=== PATIENT | male | born 1955 | race Caucasian/White ===

== ENCOUNTER 2016-12-27 01:29 | Observation (INO) ==
[2016-12-27] MEDS ORDERED: ONDANSETRON 4 MG/2 ML VIAL IV STA (02:23)
[2016-12-27 02:36] LABS: Basophils % 0.7 % (0.0-0.8); Eosinophils # 0.1 10*3/uL (0.0-0.87); Eosinophils % 2.1 % (0.00-10.9); Hematocrit 42.2 VOL% (42.0-52.0); Hemoglobin 14.4 GM/DL (14.0-18.0); Lymphocytes # 1.4 10*3/uL (1.4-4.0); Lymphocytes % 23.3 % (21.2-54.2); Mean Corpuscular HGB Conc 34.1 GM/DL (32-36); Mean Corpuscular Hemoglobin 32 PG (27-34); Mean Platelet Volume 10.9 FL (9.6-12.0); Monocytes # 0.5 10*3/uL (0.11-0.8); Monocytes % 8.5 % (1.7-12.7); Neutrophils % 65.4 % (38.7-73.9); Platelet Count 85 T/CUMM (130-400); Red Blood Count 4.54 MC/CUMM (3.8-5.5); Red Cell Distribution Width 13.1 % (9.3-17.3); White Blood Count 6.1 T/CUMM (4-12)
[2016-12-27 02:47] LABS: INR 1.2; PT Patient Result 13.2 SECS; Partial Thromboplastin Time 28.7 SECS (0-40)
[2016-12-27 03:00] LABS: Alanine Aminotransferase 46 U/L (16-61); Albumin 3.5 G/DL (3.4-5.0); Alkaline Phosphatase 79 U/L (45-117); Aspartate Amino Transferase 36 U/L (0-37); Blood Urea Nitrogen 9 MG/DL (7-18); Calcium 8.7 MG/DL (8.5-10.1); Glucose 254 MG/DL (74-106); Osmolality,Calculated 286.4 MOS/KG (273-304); Potassium 3.7 MMOL/L (3.5-5.1); Sodium 140 MMOL/L (136-145); Total Protein 7.1 G/DL (6.4-8.3); Troponin I Only < 0.015 NG/ML (0.00-0.045)
--- NOTE | 2016-12-27 04:04 | EKG Report ---
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
[2016-12-27] MEDS ORDERED: ASPIRIN 325 MG TABLET PO STA (04:30)
[2016-12-27] MEDS ORDERED: ASPIRIN 325 MG TABLET ONE (04:38)
[2016-12-27] MEDS ORDERED: ONDANSETRON 4 MG/2 ML VIAL IV PRN (04:47)
[2016-12-27 05:01] LABS: Apearance,Urine CLEAR (Clear); Bilirubin,Urine Negative (Negative); Blood, Urine Negative (Negative); Glucose,Urine (UA) >=500 mg/dL (Negative); Ketones,Urine Negative (Negative); Mucus,Urine Occasional /LPF (Occasional); Nitrite,Urine Negative (Negative); Protein,Urine Negative; RBC,Urine 1 /HPF (0-4); Urine Color Yellow (Yellow); Urine Specific Gravity 1.011 (1.001-1.035); Urine Urobilinogen < 2.0 EU/DL (0.2-1.0); WBC,Urine <1 /HPF (0-6)
--- NOTE | 2016-12-27 05:03 | Emergency Department Note ---
I, Shirin Pena, am scribing for, and in the presence of, Ewelina Kelley DO 02:32. I, Ewelina Kelley DO, personally performed the services described in this documentation, ascribed by Shirin Pena in my presence, and it is both accurate and complete 503 . Arrival - Arrival Chief Complaint: Neuro Stated Complaint: numes lower r lip headache swelling on the left s ED Nursing Triage Note: Patient complains of numbeness to left side of lips and headache to left side of head that has been going on since Tuesday. Patient also complains of blurred vision and nausea. Awake, alert oriented x4 and ambulatory upon triage. Speech clear and audible, no slurring. History of HTN and high cholesterol. Mode of Arrival: Ambulatory Limitations: No Limitations Source: Patient, Significant other Time Seen by Provider: 12/27/16 02:07 - History of Present Illness HPI Narrative: Pt is a 60 y/o male that came to the ED with c/o pain behind the left ear with swelling that began 4 days ago. Pt states he also began having nausea tonight. 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 Pt states he came tonight with the head pain due to not being able to get comfortable no matter what position he tried. He reports he tried taking Tylenol for sxs with no relief. Pt reports he also had right sided numbness to his lip, right sided facial swelling, and slurred speech yesterday morning. Pt states he was also not able to control his mouth when the numbness came on. Pt denies difficulty breathing and swallowing but admits he has had problems with keeping liquids inside his mouth due to the numbness of his lip. states pt' s speech still sounds slurred and pt has been complaining of a MAYORGA every other day recently. Pt reports he did not come to the ED yesterday when the sxs came on because he "though it would be alright and just one of those things." Pt has a PMHx of HTN and hyperlipidemia. states pt's HTN medication was recently changed a little over a month ago. Pt admits he did stop taking his daily aspirin due to bleeding too much from it. Pt has a PSHx of appendectomy. Pt's PCP is Dr. Hale. No other complaints/pain in ED. Onset (ago): day(s) Consistency: constant Severity: moderate Severity scale (1-10): 4 Quality: sharp Allergies/Adverse Reactions: Allergies Allergy/AdvReac Type Severity Reaction Status Date / Time No Known Allergies Allergy Unverified 12/27/16 01:42 Home Medications: Home Medications Medication Instructions Recorded Confirmed Type Simvastatin [Zocor] 40 mg PO DAILY 12/27/16 12/27/16 History Valsartan/Hydrochlorothiazide 1 each PO DAILY 12/27/16 12/27/16 History [Valsartan-Hctz 160-12.5 mg Tab] Review of System - Review of System 12 point system: reviewed and no additional remarkable complaints except as stated - Review of System Constitutional: Present: other (slurred speech). Absent: chills, fever Head/Ears/Nose/Throat: Absent: earache Respiratory: Absent: cough Cardiovascular: Absent: chest pain Gastrointestinal: Present: nausea. Absent: abdominal pain, vomiting Musculoskeletal: Present: neck pain (neck pain behind his left ear with swelling ). Absent: arm pain, back pain Skin: Absent: rash Neurological: Present: headache, numbness (numbness to the right side of his mouth yesterday morning) Psychiatric: Absent: anxiety Medical,Surgical,& Family Hx - Medical History Cardio: History of: Hypertension Endocrine: History of: Dyslipidemia - Surgical History Surgical History: noncontributory Abdominal Surgeries: Surgical HX of: Appendectomy - Family History Family History: noncontributory - Social History Smoking Status: Never smoker Frequency of Alcohol Use: None Type of Drug Use: None Marital Status: Lives With:: Spouse Functional capacity: independent ambulation Exam Vital Signs: Vital Signs Temperature 98.4 F 12/27/16 01:54 Pulse Rate 65 12/27/16 01:54 Respiratory Rate 16 12/27/16 01:54 Blood Pressure 150/80 12/27/16 01:54 O2 Sat by Pulse Oximetry 95 12/27/16 01:46 - General General appearance: alert, in no apparent distress, other (left facial drooping with slightly slurred speech) - Head Head exam: Present: atraumatic, normocephalic - Eye Eye exam: Present: PERRL, EOMI - ENT ENT exam: Present: mucous membranes moist. Absent: mucous membranes dry - Neck Neck exam: Present: full ROM. Absent: tenderness - Chest Chest inspection: Present: symmetric chest wall rise. Absent: tenderness - Respiratory Respiratory exam: Present: normal lung sounds bilaterally. Absent: respiratory distress - Cardiovascular Cardiovascular exam: Present: regular rate, normal rhythm, normal heart sounds - Abdominal Exam Abdominal exam: Present: soft. Absent: tenderness - Extremities Exam Extremities exam: Present: full ROM. Absent: tenderness - Back Exam Back exam: Present: full ROM. Absent: tenderness - Neurological Exam Neurological exam: Present: alert, oriented X3, CN II-XII intact. Absent: motor sensory deficit - Psychiatric Psychiatric exam: Present: normal affect, normal mood - Skin Skin exam: Present: warm, dry Course Course Narrative: This is a 60-year-old male is coming into the ER today with a 24-36 hour history of a left-sided headache that is associated with some weakness in the left side of his face trouble swallowing and according to the his speech is been altered a little bit. He reports that his head was hurting before anything started and he simply thought it was just a tension headache. He states that he was taking some Tylenol but nothing was really helping the headache. 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 He was able to get the words out but he did not sound quite right. He has had no trouble swallowing or choking no fever no chills no chest pain no abdominal pain. He denies any trouble walking or any numbness or tingling in his arms or legs. The patient states that tonight when he tried to lay down to go to sleep his head continued to hurt especially on the left side and his made him come to the hospital to be evaluated. She reports that he takes blood pressure medication he had an echocardiogram done several years ago and was told his heart was enlarged. He is also on a cholesterol medicine. He is to take an aspirin a day but quit doing that because he was bruising a lot at work. The patient has no cardiac history that he is aware of such as an LA or blockage. He has never had a stroke or strokelike symptoms. She reports his blood pressure medication was changed several months ago. Physical exam the patient is awake alert his vital signs are stable blood pressure is normal at 150/80. HEENT exam TMs are normal pupils are equal and reactive. Evaluation of the posterior aspect of his head and neck he does have some tenderness to the base of his head and the left posterior cervical region is slightly tender. He has full range of motion. Heart is regular rate and rhythm his lungs are clear in the anterior and posterior wu. His abdomen is soft nontender with good bowel sounds no masses are palpable his extremities are intact with full range of motion. Neurologic exam for me he does have an obvious deficit when he tries to do facial grimacing he has weakness on the left side of his face. His tongue also deviates slightly when he sticks it out. His speech is a little thick at this time. He reported to me when he tried to swallow he was having trouble because the fluid is running out of his mouth. His core rescuer are virtually equal he did not have any gross deficits with his upper or lower extremities. I did do CT scan of the brain which did not show any acute process. Multiple lab tests were obtained which were also case EKG was also all right. At this time I do not feel the patient is a candidate for thrombolytic therapy for stroke treatment because his time of onset is been greater than 24 hours. I do feel the patient needs admitted for a workup for strokelike symptoms. He is in agreement with this treatment plan. I do give him a full aspirin. I have spoken to the hospitalist and we will be admitting the patient for further management of his strokelike symptoms. - Reevaluation(s) Reevaluation #1: he is doing better - symptoms are stable Time: 04:30 - Consultations Consultation #1: Dr. Mathews has been consulted and agrees with admission Time: 05:02 Results - Labs CBC & BMP: 12/27/16 02:25 12/27/16 02:25 Lab Results: I have reviewed the patients labs Labs: Laboratory Tests 12/27/16 02:25 Plt Count 85 L Laboratory Tests 12/27/16 12/27/16 02:25 02:25 INR 1.2 PT Patient/Control Mix 13.2 Circ Anticoag PTT 28.7 Glucose 254 H Globulin 3.6 H Albumin/Globulin Ratio 0.9 L - EKG EKG results: interpreted by ERMD, WNL, sinus rhythm - Diagnostic Findings Procedure: CT: report reviewed by me (Head: No acute intracranial process. ) Disposition Clinical Impression: Stroke-like symptoms Case discussed with: patient, patient's family Disposition: Still a Patient Condition: Stable Time of Disposition: 05:03
[2016-12-27 05:09] LABS: Hypochromasia Slight; Platelet Estimate Decreased
--- NOTE | 2016-12-27 05:36 | Hospitalist History & Physical ---
Assessment and Plan (1) RIND (reversible ischemic neurologic deficit) Status: Acute Assessment and plan: Patient symptoms and signs seem to waxing and waning. There is residual right facial droop according to the that his voice is better now but was very drawn in the morning. Patient was neurologic evaluation. We will also do need to do more brain imaging with MRI also do a CTA of the head and neck and also an ultrasound of the neck. This should evaluate for atheromas or structural vascular problems. Patient does have an echocardiogram. Consultation for neurology is going to be put on board. In the meantime patient is being admitted to [facility] medicine. Patient be admitted as an inpatient start him on antiplatelets with aspirin check lipid panel put him on a monitored bed. DVT prophylaxis will use Lovenox 40 mg subcu every day. Current Visit: Yes History of Present Illness Chief complaint: Possible stroke History of present illness: Mr. Carrasquillo is a 60 year old male that came to the ED with c/o pain behind the left ear with swelling that began 4 days ago. Pt states he also began having nausea tonight. 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 Pt states he came tonight with the head pain due to not being able to get comfortable no matter what position he tried. He reports he tried taking Tylenol for sxs with no relief. Pt reports he also had right sided numbness to his lip, right sided facial swelling, and slurred speech yesterday morning. Pt states he was also not able to control his mouth when the numbness came on. Pt denies difficulty breathing and swallowing but admits he has had problems with keeping liquids inside his mouth due to the numbness of his lip. states pt's speech still sounds slurred and pt has been complaining of a MAYORGA every other day recently. Pt reports he did not come to the ED yesterday when the sxs came on because he "though it would be alright and just one of those things." Pt has a PMHx of HTN and hyperlipidemia. states pt's HTN medication was recently changed a little over a month ago. Pt admits he did stop taking his daily aspirin due to bleeding too much from it. Pt has a PSHx of appendectomy. Pt's PCP is Dr. Hale. Home Medications Medication Instructions Recorded Confirmed Type Simvastatin [Zocor] 40 mg PO DAILY 05/01/17 05/01/17 History Valsartan/Hydrochlorothiazide 1 each PO DAILY 12/27/16 12/27/16 History [Valsartan-Hctz 160-12.5 mg Tab] Allergies Allergy/AdvReac Type Severity Reaction Status Date / Time No Known Allergies Allergy Unverified 12/27/16 01:42 Medical,Surgical,& Family Hx - Medical History Cardio: History of: Hypertension Endocrine: History of: Dyslipidemia - Surgical History Abdominal Surgeries: Surgical HX of: Appendectomy - Social History Smoking Status: Never smoker Frequency of Alcohol Use: None Type of Drug Use: None Review of systems: 12 point system assessment was done. Patient acknowledges having had problems giving out his words. He still complaining of numbness of the corner of the mouth on the right side. However noticed that his face tends to brought to the right. Does so does his tongue on tongue protrusion. He also is complaining of right occipital headache. Other than the chief complaint and history of presenting illness nothing else pans out on the 12 point system assessment Exam - Constitutional Vitals: Period Temp Pulse Resp BP Sys/Lowery Pulse Ox Last 24 Hr 61 16 149/90 General appearance: over weight - Head Head exam: Present: normal inspection, normocephalic, atraumatic - Eye Eye exam: Present: EOMI Pupils: Present: AMADEO - ENT ENT exam: Present: normal oropharynx, other (Tongue protrusion draws to the right) - Neck Neck exam: Present: other (Patient has a supple neck thick short tenderness in the posterior aspect behind the left ear) - Respiratory Respiratory exam: Present: clear to auscultation bilaterally, other (No wheezing no rales) - GI/Abdominal GI/Abdominal exam: Present: normal bowel sounds, soft, other (No hepatosplenomegaly no tenderness palpation) - Extremities Exam Extremities exam: Present: full ROM, other (No focal weakness in the limbs) - Back Exam Back exam: Present: normal inspection - Neurological Exam Neurological exam: Present: alert, oriented X3, CN II-XII intact - Psychiatric Psychiatric exam: Present: normal affect, normal mood - Skin Skin exam: Present: normal color, warm, dry Results - Labs CBC & BMP: 12/27/16 02:25 12/27/16 02:25 Lab Results: I have reviewed the past 24 hour labs - EKG EKG results: sinus rhythm, normal ST/T (EKG may have some old Q waves in inferior leads) Quality Measures - Stroke Onset of Symptoms Date: 12/24/16
--- NOTE | 2016-12-27 06:55 | XRay Report ---
History: Paresthesias left side of lips. Left-sided headache. Nausea. History of hypertension Date: 12/27/2016 Study: Chest x-ray AP portable Comparison exam: No previous chest x-ray available There is cardiomegaly. There is no mediastinal mass. The pulmonary vasculature is not engorged. There is coarsening of the bronchovascular markings. There are some scattered emphysematous changes. There is no definite acute infiltrate. There is no gross pleural effusion. There is mild thoracic spondylosis. Impression: Mild cardiomegaly. Chronic lung changes. No definite acute process PROCEDURE INTERPRETED AT [facility] DEPARTMENT OF RADIOLOGY Final Report Signed by: Dr. Jeniffer Ascencio
--- NOTE | 2016-12-27 06:58 | CT Report ---
History: Paresthesias left side of lips. Left-sided headache. Nausea. History of hypertension Date: 12/27/2016 Study: CT head without contrast Comparison exam: No previous head CT available Transaxial CT sections were obtained through the head without IV contrast. This CT exam was performed using one or more the following dose reduction techniques: Automated exposure control, adjustment of the MA and/or KV according to patient size, or use of iterative reconstruction technique. The study was performed on the day of admission. The study was also reviewed by [facility]. The ventricles are midline in position without evidence of hydrocephalus. There is no mass or parenchymal hemorrhage. There is no gross CT evidence of acute cortical stroke. There is no extra-axial hematoma. The partially visualized paranasal sinuses and mastoid air cells are clear. Impression: No acute intracranial process PROCEDURE INTERPRETED AT [facility] DEPARTMENT OF RADIOLOGY Final Report Signed by: Dr. Jeniffer Ascencio
--- NOTE | 2016-12-27 07:20 | Ultrasound Report ---
History: Paresthesias left side of lips. Left-sided headache. Nausea. History of hypertension Date: 12/27/2016 Study: Carotid duplex ultrasound Comparison exam: No previous similar study Color Doppler, wave form analysis, and grayscale analysis of the cervical carotid arteries was performed. There is mild partially calcified plaque in the right carotid bulb. Waveform analysis shows proper directional flow of the cervical carotid arteries. There is antegrade flow in either vertebral artery. The distal right ICA measures 4.1 mm diameter; the left measures 4.3 mm diameter. Peak systolic velocities are as follows: Right CCA 70 cm/s Right ICA 76 cm/s Right ECA 136 cm/s Right vertebral 55 cm/s Right IC/CC ratio 1.1 Left CCA 106 cm/s Left ICA 92 cm/s Left ECA 94 cm/s Left vertebral 80 cm/s Left IC/CC ratio 0.9 There is 0-15% diameter reduction narrowing of either internal carotid artery using indirect NASCET criteria. Ultrasound images were captured and archived. Impression: No hemodynamically significant internal carotid artery stenosis PROCEDURE INTERPRETED AT [facility] DEPARTMENT OF RADIOLOGY Final Report Signed by: Dr. Jeniffer Ascencio
--- NOTE | 2016-12-27 07:57 | CT Report ---
History: Paresthesias left side of lips. Slurred speech. Left-sided headache. Nausea. History of hypertension Date: 12/27/2016 Study: CT angiogram of the neck with IV contrast Comparison exam: No previous similar study Thin spiral CT sections were obtained through the neck with 80 mL Omnipaque 350 IV contrast. In addition to multiplanar reconstruction images, 3-D images were also generated, archived, and analyzed. This CT exam was performed using one or more the following dose reduction techniques: Automated exposure control, adjustment of the MA and/or KV according to patient size, or use of iterative reconstruction technique. There is a bovine arch anatomy. There is no high-grade stenosis at the origins of the great vessels. There is mild calcification at the origin of the left subclavian artery. The vertebral arteries are generally patent without obvious focal abnormality. There is no significant stenosis of the common carotid arteries. There is mild partially calcified plaque in either carotid bulb. There is 0% diameter reduction of either internal carotid artery using NASCET criteria. The normal left ICA measures approximately 4.4 mm; the right measures 3.9 mm. There is no obvious soft tissue mass at the cervical level. There is no cervical lymphadenopathy by short axis diameter criteria. There are scattered mild degenerative disc narrowing and anterior spondylosis at C4-C5 through C6-C7. Impression: No hemodynamically significant stenosis of the internal carotid arteries is identified. PROCEDURE INTERPRETED AT [facility] DEPARTMENT OF RADIOLOGY Final Report Signed by: Dr. Jeniffer Ascencio
--- NOTE | 2016-12-27 08:07 | CT Report ---
History: Paresthesias left side of lips. Slurred speech. Left-sided headache. Nausea. History of hypertension Date: 12/27/2016 Study: CT angiogram of the head with IV contrast Comparison exam: No previous similar study Thin spiral CT sections were obtained through the head with 80 mL Omnipaque 350 IV contrast. In addition to multiplanar reconstruction images, 3-D images were also generated, archived, and analyzed. This CT exam was performed using one or more the following dose reduction techniques: Automated exposure control, adjustment of the MA and/or KV according to patient size, or use of iterative reconstruction technique. There is normal makah of Roach anatomy. There is no basilar artery stenosis. The anterior, middle, and posterior cerebral arteries are patent and are generally unremarkable. There is no obvious patent cerebral artery aneurysm. Patent bilateral PICA, AICA, and superior cerebellar arteries are noted. The major venous sinuses are patent and grossly unremarkable. There is no abnormal enhancing mass or obvious parenchymal hemorrhage. There is no significant change otherwise from the noncontrast CT brain performed earlier the same day.. Impression: No acute abnormality PROCEDURE INTERPRETED AT [facility] DEPARTMENT OF RADIOLOGY Final Report Signed by: Dr. Jeniffer Ascencio
[2016-12-27] MEDS ORDERED: VALSARTAN/HCTZ 160-12.5 MG TABLET PO SCH (09:00)
[2016-12-27] MEDS ORDERED: SIMVASTATIN 40 MG TABLET PO SCH (09:00)
[2016-12-27] MEDS ORDERED: ENOXAPARIN 40 MG/0.4 ML SYRINGE SUBCUT SCH (09:00)
--- NOTE | 2016-12-27 12:54 | ECHO Report ---
Ole Carrasquillo Exam Date: 12/27/2016 10:01 Referring Physician: Technologist: Courtney Villalobos Age: 60 Ht (in): 67 Wt (lb): 250 Gender: M Exam Location: [facility] Echo Indications: Stroke like symtoms, RIND BP: 160 / 75 HR: 64 Rhythm: Sinus Technical Quality: Technically difficult study IMPRESSIONS Technically difficult study. Left ventricular ejection fraction is estimated at 50-55 %. Mildly increased left atrial diameter. Mild mitral leaflet thickening with trace mitral regurgitation. Mild aortic valve sclerosis without stenosis. Mild tricuspid valve regurgitation. MEASUREMENTS (Male / Female) Normal Values 2D ECHO LV Diastolic Diameter PLAX 4.2 cm 4.2 - 5.9 / 3.9 - 5.3 cm LV Systolic Diameter PLAX 2.7 cm LV Fractional Shortening PLAX 37.2 % IVS Diastolic Thickness 1.9 cm 0.6 - 1.0 / 0.6 - 0.9 cm LVPW Diastolic Thickness 1.4 cm 0.6 - 1.0 / 0.6 - 0.9 cm RV Internal Dim ED PLAX 3.3 cm Aortic Root Diameter 2.8 cm LA Systolic Diameter LX 4.5 cm 3.0 - 4.0 / 2.7 - 3.8 cm DOPPLER TR Peak Velocity 194.0 cm/s TR Peak Gradient 15.1 mmHg FINDINGS Left Ventricle Severely increased septal wall thickness. Moderate concentric left ventricular hypertrophy with diastolic dysfunction. Left ventricular ejection fraction is estimated at 50-55 %. Right Ventricle Grossly normal right ventricle. Right Atrium Grossly normal right atrium. Left Atrium Mildly increased left atrial diameter. Mitral Valve Mild mitral leaflet thickening with trace mitral regurgitation. Aortic Valve Mild aortic valve sclerosis without stenosis. Tricuspid Valve Morphologically normal tricuspid valve. Mild tricuspid valve regurgitation. Tricuspid regurgitation velocities suggest a PAP of 15.1 mmHg + RAP. Pulmonic Valve Morphologically normal pulmonic valve. Pericardium No pericardial effusion. Aorta Normal size aortic root and proximal ascending aorta. Oneil Purdy (Electronically Signed) Final Date: 27 Dec 2016 12:53
--- NOTE | 2016-12-27 13:07 | Magnetic Resonance Report ---
Referring physician: Diana Gutierrez MD Exam: MRI brain without contrast Date: December 27, 2016 Comparison: CT brain without contrast December 27, 2016 Reason: CVA, slurred speech Technique: MRI of the brain was performed without the use of contrast. Obtained images include sagittal T1, axial diffusion-weighted, axial FLAIR, axial T2, coronal T2, axial gradient and axial T1 sequences. A 1.5 Lela magnet was used. Findings: No hydrocephalus or midline shift is present. There is no evidence of recent intracranial hemorrhage, abnormal mass effect or acute infarction. No abnormal extra-axial fluid collection is identified, and major vascular flow voids are visualized. There is minimal T2/FLAIR hyperintensity at the periventricular white matter at the right frontal lobe. This is nonspecific but likely represents minimal chronic microvascular ischemic change. The patient may be status post cataract surgery. The orbits, sella and brainstem are otherwise unremarkable. There is minimal mucosal thickening within the right ethmoid air cells and minimal fluid within the mastoid air cells, mainly on the right. Impression: 1. No acute intracranial process is identified. 2. Probable minimal chronic microvascular ischemic change. PROCEDURE INTERPRETED AT [facility] DEPARTMENT OF RADIOLOGY Final Report Signed by: Dr. eWro Lawrence
[2016-12-27 17:10] VITALS: BP 139/67
--- NOTE | 2016-12-27 17:53 | Neurology Consult Note ---
History of Present Illness History of present illness: Mr. Carrasquillo is a 60 year old right-handed white gentleman that came to the ED with c/o pain behind the left ear with swelling that began on Tuesday evening. Pt states he also began having nausea . 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 Pt reports he also had left sided numbness to his lip, right sided facial swelling, and some slurred speech yesterday morning. Pt states he was also not able to control his mouth when the numbness came on. Pt denies difficulty breathing and swallowing but admits he has had problems with keeping liquids inside his mouth due to the numbness of his lip. MRI of the brain reveals no acute abnormalities. Patient has difficulty in closing left eye. Home Medications Medication Instructions Recorded Confirmed Type Simvastatin [Zocor] 40 mg PO DAILY 12/27/16 12/27/16 History Valsartan/Hydrochlorothiazide 1 each PO DAILY 12/27/16 12/27/16 History [Valsartan-Hctz 160-12.5 mg Tab] Allergies Allergy/AdvReac Type Severity Reaction Status Date / Time No Known Allergies Allergy Unverified 12/27/16 01:42 12 point system: reviewed and no additional remarkable complaints except as stated Medical,Surgical,& Family Hx - Medical History Cardio: History of: Hypertension Neurology: History of: Seizures (1992) HEENT: History of: Eye Problem (cataracts) Endocrine: History of: Dyslipidemia Respiratory: History of: Pneumonia (2014) Musculoskeletal: History of: Back/Neck Problems (Pain behind left ear/neck) - Surgical History HEENT Surgeries: Surgical HX of: Eye Surgery (Cataract surgery 2013) Patient denies: Tonsilectomy & Adenoidectomy Abdominal Surgeries: Surgical HX of: Appendectomy, Colonoscopy (at 52 yo) - Social History Smoking Status: Never smoker Frequency of Alcohol Use: None Type of Drug Use: None Exam - Constitutional Vitals: Period Temp Pulse Resp BP Sys/Lowery Pulse Ox Last 24 Hr 97.6 F-98.0 F 60-85 16-22 135-160/67-90 95-100 Exam: GENERAL: Patient is in no acute distress. NECK: Neck is supple. There is no JVD. No carotid bruits present. No thyroid masses. CVS: First and second heart sounds are normal. There is no S3 present. Regular rate and rhythm. RESPIRATORY: Lungs are clear to auscultation without any rales or rhonchi. ABDOMEN: Soft and non-tender. Bowel sounds are present. There is no hepatosplenomegaly. EXT: There is no palpable edema. Peripheral pulses are present. Skin: No rashes Central Nervous system: General: Alert, awake and Oriented x 3 Speech: Fluent Comprehension: Intact and normal Facial expressions: Normal Cranial Nerves: CN1/Olfactory: Normal CN II/ Optic: Normal, Visual Pat unreliable CN III, and : AMADEO & EOMI CN V: Normal & intact CN VII: left motor neuron type facial weakness CNVIII: Normal CN XI/X/XI/XII: Intact and Normal Motor: Bulk and Tone is normal. Strength in the right 5/5 Strength in the left 5/5 Sensory: Grossly intact for all the modalities of PP, LT and temp sense Reflexes: 1+ and symmetrical Cerebellar function: Normal finger to nose and heel to franks testing. Toes: Equivocal Gait: Normal heel to heel and toe to toe and tandem walk. Results - Labs CBC & BMP: 12/27/16 02:25 12/27/16 02:25 Assessment and Plan (1) Stafford's palsy Status: Acute Assessment and plan: This is left Stafford's palsy. No evidence of a stroke. Medrol Dosepak Acyclovir for 7 days Follow-up in 1 month Okay to go home today from neuro standpoint Sign off please call as needed Current Visit: Yes Specialty Discharge - Follow Up or Referrals Follow up with: Darvin Wyman MD [Physician] - 1 Month
[2016-12-27] MEDS ORDERED: methylPREDNISolone 4 MG TABLET PO SCH ×2 (18:00→18:01)
[2016-12-27] MEDS ORDERED: ACYCLOVIR 200 MG CAPSULE PO SCH (18:00)
--- NOTE | 2016-12-27 18:14 | Discharge Summary ---
Hospital Course - Hospital Course Hospital Course: Mr. Carrasquillo is a 60-year-old male admitted to the hospitalist service with left ear swelling and pain along with left-sided facial numbness and swelling with slurred speech. Patient had head CT, echocardiogram, brain MRI, carotid Doppler studies, head and neck CTA that were all negative. Dr. Wyman from neurology was consulted and diagnosed the patient with left-sided Stafford's palsy with no evidence of stroke. He is recommending a Medrol Dosepak and acyclovir for 7 days and to follow-up with him in 1 month. Patient has been okay to be discharged home. DC instructions were given. Care was coordinated with Dr. Wyman the neurologist and Dr. Gutierrez hospitalist along with nursing and the patient, total discharge planning took approximately 32 minutes. - Time spent with patient Time with patient DS: Greater than 30 minutes Diagnosis - Discharge Diagnosis (1) Stafford's palsy Status: Acute Specialty Discharge - Follow Up or Referrals Follow up with: Darvin Wyman MD [Physician] - 1 Month Discharge Plan - Discharge Data Disposition: Disch To Home/Self Care Condition at Discharge: Stable Discharge Diet: advance to your usual diet Activity: resume usual activities as tolerated Hygiene: no restrictions Driving: not until seen by doctor Contact your physician if you experience:: Nausea/Vomiting, Shortness of breath , pain uncontrolled by pain medications - Discharge Medications New Acyclovir Cap/Tab [Zovirax Cap/Tab] 400 mg PO 5X DAILY #70 capsule methylPREDNISolone TAB [Medrol] 12 mg PO 1800 #1 tablet Continue Valsartan/Hydrochlorothiazide [Valsartan-Hctz 160-12.5 mg Tab] 1 each PO DAILY Simvastatin [Zocor] 40 mg PO DAILY - Follow Up or Referral Follow Up: Darvin Wyman MD [Physician] - 1 Month - Forms/Instructions Exam - Constitutional Vitals: Period Temp Pulse Resp BP Sys/Lowery Pulse Ox Last 24 Hr 97.6 F-98.0 F 60-85 16-22 135-160/67-90 95-100 Discharge Results Procedures and tests throughout hospitalization: Pending Orders 12/28/16 04:00 Lipid Panel IN AM Labs on day of discharge: Labs from last 24 hours 12/27/16 12/27/16 16:25 07:57 POC Glucose 165 H 112 H DS: Provider Date of admission: 12/27/16 04:47 Primary care physician: . No PCP Attending physician on admission: Isra Mathews MD Consults: 12/27/16 05:42 Consult to Pastoral Services [CONS] Routine Comment: Pastoral Screen: Request Plastic Fixture Builder Visit Pastoral Screen Source of Request: Patient 12/27/16 05:51 Consult to Physician [CONS] Routine Comment: Physician roll on man/TIA Consulting Provider: Darvin Wyman Consulting Provider Notified: Yes When should Consulting Provider be notified: Now Consult to Specialist Group: Neurology When should Consulting Provider be notified: In am Person Notified: ANA MARIA Date Notified: 12/27/16 Time Notified: 08:46 12/27/16 13:07 Consult to Occupational Therapy [CONS] Routine Reason for Occupational Therapy: Evaluate and Treat Start Therapy: Today Consult Comment: possible stroke Consult to Physical Therapy [CONS] Routine Reason for Physical Therapy: Evaluate and Treat Start Therapy: Today Discharging clinician: RACHID Peres Expected date of discharge: 12/27/16
== END 2016-12-27 19:11 | disposition home or self-care (01) ==
LOC: N.ED 01:29 → INTOOBSV 04:47 → N.EDINP 04:47 → SUATTDRO 04:47 → N.4E 05:14
PROVIDERS: ADMIT Internal Medicine Infectious Disease; ATTEND Internal Medicine